=== PATIENT | male | born 1955 | race Caucasian/White ===

== ENCOUNTER 2021-02-08 05:36 | Outpatient (CLI) | payer MEDICARE ==
[~2021-02-08] VITALS: Ht 175.3 cm; Wt 80.9 kg
[2021-02-12] MEDS ORDERED: ALPR0.25 PO (09:36)
[2021-02-12] MEDS ORDERED: SERT-414 PO (09:36)
== END 2021-02-12 16:52 | disposition home or self-care (01) ==
LOC: PREOP 05:36
PROVIDERS: ATTEND Surgery
DX: Z01.818 Encounter for other preprocedural examination (principal)

== ENCOUNTER 2021-02-15 10:01 | Day surgery (SDC) | payer MEDICARE, OTHER ==
[~2021-02-15] VITALS: Ht 175.3 cm; Wt 80.9 kg
[2021-02-15] VITALS (11 sets, daily range): BP systolic 130–158; BP diastolic 71–96
[~2021-02-15 10:01] MED LIST: ALPR0.25 PO; LIDOCAINE/EPI 1%-1:100,000 (XYLOCAINE) 20ML ONE; SERT-414 PO
[2021-02-15] MEDS ORDERED: ceFAZolin INJECTION 1,000 MG in WATER (STERILE) FOR INJECTION 10 ML IV ONE (10:15)
--- NOTE | 2021-02-15 10:23 | Progress Note-Pre Operative ---
Pre-Operative Progress Note H&P Reviewed The H&P was reviewed, patient examined and no changes noted. Date Seen by Provider: February 15, 2021 Time Seen by Provider: : Date H&P Reviewed: February 15, 2021 Time H&P Reviewed: : Pre-Operative Diagnosis: LEFT INGUINAL HERNIA DIDI DE LA CRUZ DO February 15, 2021 10:22
[2021-02-15] MEDS ORDERED: proPOfol 200 MG/20 ML (DIPRIVAN) VIAL IV ONE (10:33)
[2021-02-15] MEDS ORDERED: ONDANSETRON 4 MG/2 ML (SDV) Z0FRAN ONE (10:33)
[2021-02-15] MEDS ORDERED: ROCURONIUM 10 MG/ML 5 ML SYRINGE IV ONE (10:33)
[2021-02-15] MEDS ORDERED: LACTATED RINGERS 1,000 ML IV ONE (10:33)
[2021-02-15] MEDS ORDERED: MIDAZOLAM 2 MG/2 ML (VERSED) VIAL ONE (10:33)
[2021-02-15] MEDS ORDERED: LIDOCAINE PF 2% 5 ML (XYLOCAINE) VIAL ONE (10:33)
[2021-02-15] MEDS ORDERED: fentaNYL INJ 100 MCG/2 ML AMP ONE (10:34)
[2021-02-15] MEDS: LACTATED RINGERS 1,000 ML IV PRN ×2 (10:45→11:24)
[2021-02-15] MEDS ORDERED: SEVOFLURANE (ULTANE) 15 ML INHAL SOLN ONE (11:10)
--- NOTE | 2021-02-15 11:45 | Progress Note-Post Operative ---
Post-Operative Progess Note Surgeon (s)/Fence Maker (s) Surgeon DIDI DE LA CRUZ DO Fence Maker: Dr. Mueller to assist in retraction dissection and closure. Pre-Operative Diagnosis LEFT INGUINAL HERNIA Post-Operative Diagnosis indirect left inguinal hernia, cord lipoma Procedure & Operative Findings Date of Procedure 02/15/21 Procedure Performed/Findings PROCEDURE: Open left inguinal hernia repair, excision cord lipoma COMPLICATIONS: None. INDICATIONS: The patient is a 66, male male with a inguinal hernia. He understands risks and benefits of procedure and wished to proceed with procedure. Consent was signed in the chart. DESCRIPTION OF PROCEDURE: The patient was taken to the operating suite, was prepped and draped in sterile fashion. Surgical pause was performed. Local anesthetic was infiltrated in the lower quadrant. Incision was made and cautery used to dissect down to the external oblique, which was then opened down through the external ring. The spermatic cord was then dissected around. A Mary drain was placed around it and there was no direct defect present. Cord lipoma excised. An indirect hernia present which was then dissected off of spermatic cord. The hernia sac was then twisted and suture ligated. Using ProGrip mesh, this was secured at Tim's ligament and then incorporated around the spermatic cord and placed under the external oblique. Hemostasis was achieved. The external oblique was then closed recreating the external ring and then the subcutaneous tissues were then reapproximated using 3-0 Vicryl and skin was then closed using 4-0 Monocryl in a subcuticular fashion. The abdomen was then washed and dried and Skin Affix was placed over the incision. The patient tolerated procedure well without any complications and taken to recovery room in stable condition. Anesthesia Type general Estimated Blood Loss Estimated blood loss (mL): minimal Specimens/Packing Specimens Removed cord lipoma, hernia sac DIDI DE LA CRUZ DO February 15, 2021 11:45
[2021-02-15] MEDS ORDERED: DOCU-143 PO (11:46)
[2021-02-15] MEDS ORDERED: ACHD5005 PO (11:46)
--- NOTE | 2021-02-15 11:47 | Discharge Inst-Simple/Standard ---
Discharge Inst-Standard Discharge Medications New, Converted or Re-Newed RX: RX on Chart Patient Instructions/Follow Up Plan of Care/Instructions/FU: 2-3 weeks Joanne Activity as Tolerated: No Discharge Diet: Regular Diet Other Inst to Patient Follow up Appt: Make appointment for 2 week. Instructions: No lifting greater than 10 pounds. No strenuous activity. May shower in 24 hours, no tub bath or soaking. Use incentive spirometer at home as directed. No Smoking Skin/Wound Care: You have special glue over your incision that will fall off on it's own. Symptoms to Report: Appetite Changes, Extremity Discoloration, Numbness/Tingling, Swelling Increased, Bleeding Excessive, Eyesight Changes, Pain Increased, Urine Color Change, Constipation(Persistent), Fever over 101 degree F, Pain/Pressure in chest, Urinating Difficulty, Cough Up/Vomit Blood, Heart Beat Irreg/Pounding, Pain/Pressure in jaw, Vaginal Bleeding Increase, Cramps in feet or legs, Lightheadedness, Pain/Pressure in shoulder, Diarrhea(Persistent), Memory Changes Suddenly, Questions/Concerns, Weight gain consecutive days, Dizziness/Fainting, Nausea/Vomiting, Shortness of Breath, Weight gain over 2 pounds If questions or concerns contact your physician Or seek help at emergency department. DIDI DE LA CRUZ DO February 15, 2021 11:47
[2021-02-15] MEDS ORDERED: MEPERIDINE (DEMEROL) INJ 50 MG/ML IVP ONE (12:15)
[2021-02-15] MEDS ORDERED: ONDANSETRON 4 MG/2 ML (SDV) Z0FRAN IVP PRN (12:15)
[2021-02-15] MEDS ORDERED: fentaNYL INJ 100 MCG/2 ML AMP IVP ONE (12:15)
[2021-02-15] MEDS ORDERED: morphine INJ 10 MG/ML 1ML (SYR OR VIAL) IVP ONE (12:15)
--- NOTE | 2021-02-15 12:37 | Anesthesia-General Post-Op ---
General Patient Condition Mental Status/LOC: Same as Preop Cardiovascular: Satisfactory Nausea/Vomiting: Absent Respiratory: Satisfactory Pain: Controlled Complications: Absent Post Op Complications Complications None Follow Up Care/Instructions Patient Instructions None needed. Anesthesia/Patient Condition Patient Condition Patient is doing well, no complaints, stable vital signs, no apparent adverse anesthesia problems. No complications reported per nursing. MAILE VICKERS CRNA February 15, 2021 12:37
[2021-02-15] MEDS ORDERED: HYDROcodone/APAP 5 MG/325 MG (LORTAB) TAB ONE (13:36)
[2021-02-15] MEDS ORDERED: HYDROcodone/APAP 5 MG/325 MG (LORTAB) TAB PO ONE (13:45)
== END 2021-02-15 14:55 | disposition home or self-care (01) ==
LOC: SDC 10:01
PROVIDERS: ATTEND Surgery
DX: K40.90 Unilateral inguinal hernia, without obstruction or gangrene, not specified as recurrent (principal); D17.6 Benign lipomatous neoplasm of spermatic cord; F41.9 Anxiety disorder, unspecified; F32.9 Major depressive disorder, single episode, unspecified; Z79.899 Other long term (current) drug therapy; Z87.891 Personal history of nicotine dependence; Z82.49 Family history of ischemic heart disease and other diseases of the circulatory system; Z83.3 Family history of diabetes mellitus
CPT/HCPCS: 49505; 87081; C1781

== ENCOUNTER 2021-07-24 05:38 | Outpatient (CLI) | payer MEDICARE, OTHER ==
[~2021-07-24] VITALS: Ht 175.3 cm; Wt 80.9 kg
[~2021-07-24 05:38] MED LIST changes: +ACHD5005 PO; +DOCU-143 PO; -LIDOCAINE/EPI 1%-1:100,000 (XYLOCAINE) 20ML ONE
== END 2021-07-25 11:50 | disposition home or self-care (01) ==
LOC: PREOP 05:38
PROVIDERS: ATTEND Surgery
DX: Z01.818 Encounter for other preprocedural examination (principal)

== ENCOUNTER 2021-07-31 09:45 | Day surgery (SDC) | payer MEDICARE, OTHER ==
[2021-07-31] VITALS (7 sets, daily range): BP systolic 92–130; BP diastolic 51–83
[~2021-07-31] VITALS: Ht 175.3 cm; Wt 78.9 kg
[2021-07-31] MEDS ORDERED: LACTATED RINGERS 1,000 ML IV ONE (10:00)
[2021-07-31] MEDS ORDERED: LACTATED RINGERS 1,000 ML IV STA (10:11)
--- NOTE | 2021-07-31 10:25 | Progress Note-Pre Operative ---
Pre-Operative Progress Note H&P Reviewed The H&P was reviewed, patient examined and no changes noted. Date Seen by Provider: Jul 31, 2021 Time Seen by Provider: 10:24 Date H&P Reviewed: Jul 31, 2021 Time H&P Reviewed: 10:24 Pre-Operative Diagnosis: screening colonoscopy DIDI DE LA CRUZ DO Jul 31, 2021 10:25
[2021-07-31] MEDS ORDERED: PROPOFOL INJECTION 50 ML IV ONE (11:46)
[2021-07-31] MEDS ORDERED: MIDAZOLAM 2 MG/2 ML (VERSED) VIAL ONE (11:46)
--- NOTE | 2021-07-31 12:16 | Progress Note-Post Operative ---
Post-Operative Progess Note Surgeon (s)/Book Sewing Machine Operator (s) Surgeon DIDI DE LA CRUZ DO Book Sewing Machine Operator: na Pre-Operative Diagnosis screening colonoscopy Post-Operative Diagnosis normal colon Procedure & Operative Findings Date of Procedure 07/31/21 Procedure Performed/Findings colonoscopy Anesthesia Type Per TRANSIT OPERATIONS SUPERVISOR Estimated Blood Loss Estimated blood loss (mL): none Specimens/Packing Specimens Removed none DIDI DE LA CRUZ DO Jul 31, 2021 12:16
--- NOTE | 2021-07-31 12:18 | Discharge Inst-Simple/Standard ---
Discharge Inst-Standard Patient Instructions/Follow Up Plan of Care/Instructions/FU: repeat colonoscopy in 10 years unless family history of colon cancer which would be 5 years, any issues before that be seen at that time. Activity as Tolerated: Yes Discharge Diet: Regular Diet DIDI DE LA CRUZ DO Jul 31, 2021 12:18
--- NOTE | 2021-07-31 14:30 | Anesthesia-General Post-Op ---
MAC Patient Condition Mental Status/LOC: Same as Preop Cardiovascular: Satisfactory Nausea/Vomiting: Absent Respiratory: Satisfactory Pain: Controlled Complications: Absent Post Op Complications Complications None Follow Up Care/Instructions Patient Instructions None needed. Anesthesiology Discharge Order Discharge Order Patient was doing well after the procedure, no complaints, stable vital signs, no apparent adverse anesthesia problems. ASHLEY MENDEZ DO Jul 31, 2021 14:30
--- NOTE | 2021-07-31 18:34 | OPERATIVE REPORT ---
DATE OF SERVICE: 07/31/2021 PREOPERATIVE DIAGNOSIS: Screening colonoscopy. POSTOPERATIVE DIAGNOSIS: Normal colon. PROCEDURE: Colonoscopy. SURGEON: Didi Rubio DO ANESTHESIA: Per CLAIMS ATTORNEY. ESTIMATED BLOOD LOSS: None. COMPLICATIONS: None. INDICATIONS: The patient is a 66-year-old male needing screening colonoscopy. He understands risks and benefits of procedure and wishes to proceed. Consent was signed in the chart. DESCRIPTION OF PROCEDURE: The patient was taken to the endoscopy suite, placed in left lateral recumbent position. Timeout was performed. Digital rectal exam was performed. No palpable polyps, masses or ulcerations. Scope was inserted in the rectum, advanced all the way to cecum with minimal difficulty. Prep was adequate. Scope was then slowly retracted back. No polyps, masses or ulcerations within the cecum, ascending, transverse, descending and sigmoid colon. Once in the rectum, scope was retroflexed noting no other pathology. Scope was returned to its normal position, slowly withdrawn until completely removed. The patient tolerated procedure well without any complications, taken to recovery room in stable condition. RECOMMENDATIONS: The patient will need repeat colonoscopy in 10 years unless family history of colon cancer, which would then be 5 years. Any issues before that be seen at that time. Job ID: [id number] DocumentID: [id number] Dictated Date: 07/31/2021 12:20:09 Access Database Developer Date: 07/31/2021 18:33:48 Dictated By: DIDI RUBIO DO
== END 2021-07-31 13:19 | disposition home or self-care (01) ==
LOC: ENDO 09:45
PROVIDERS: ATTEND Surgery
DX: Z12.11 Encounter for screening for malignant neoplasm of colon (principal); S60.450A Superficial foreign body of right index finger, initial encounter; F41.9 Anxiety disorder, unspecified; Z87.891 Personal history of nicotine dependence; Z79.899 Other long term (current) drug therapy; Z83.3 Family history of diabetes mellitus; Z82.49 Family history of ischemic heart disease and other diseases of the circulatory system

== ENCOUNTER 2022-07-12 09:22 | Emergency (ER) | payer MEDICARE, OTHER ==
[~2022-07-12] VITALS: Ht 188 cm; Wt 99.8 kg
[2022-07-12] MEDS ORDERED: NS 1000 ML IV BAG IV ONE (09:24)
[2022-07-12] MEDS ORDERED: SODIUM BICARB 8.4% 50 MEQ/50 ML (ABBOTT) SYR INJ ONE (09:24)
[2022-07-12] MEDS ORDERED: EPINEPHrine 0.1 MG/ML 10 ML (HOSPIRA) SYR IJ ONE (09:24)
[2022-07-12 09:25] VITALS: BP 167/105
[2022-07-12] MEDS: NALOXONE 2 MG/2 ML (NARCAN) SYR ONE (09:38)
--- NOTE | 2022-07-12 09:56 | ED CPR ---
HPI-CPR General Chief Complaint: Code Blue Stated Complaint: CODE BLUE Source of Information: EMS Exam Limitations: Physical Impairments History of Present Illness Date Seen by Provider: Jul 12, 2022 Time Seen by Provider: 09:50 Initial Comments Patient is a 67-year-old male brought to the emergency department by EMS found unresponsive in his vehicle. Patient had immediate ACLS protocol initiated with either a fine V. fib or asystole present on the monitor. Medics chose to treat as V. fib, patient was defibrillated x4 prior to arrival. He had an I gel in place for his airway. Medic noticed blood in the airway just as they were pulling into the hospital. No rhythm changes after defibrillation. Patient was found at 0 900. No obvious trauma. Blood sugar was in the 170s. ACLS protocol continued in the emergency department with 2 additional defibrillations at 200 J. An amp of bicarb was given as well as multiple subsequent doses of IV epinephrine. 2 of Narcan was also given and spite of unresponsive dilated pupils. Patient was warm on arrival with good color. I gel was exchanged for 8 oh ET tube using the glide scope with visualization of the cords, bilateral breath sounds initially right greater than left secured at 24 at the lip. He had copious amounts of bloody sputum suctioned from the airway at the time of end of resuscitative efforts approximately 350 cc had been suctioned from the airway. After no response and rhythm changed to what appeared to be an organized PEA rhythm with no pulse, no spontaneous respirations no return of circulation time of was called at 0 946. Initial Complaints: Found Unresponsive Witnessed Arrest: No Bystander CPR: No Paramedics Initial Findings: No Pulse, No Respirations, Unresponsive, V-FIB Paramedics' Initial Vital Sign: none Pre Hospital Treatment: CPR/Thumper, Defibrillation (x4), Oxygen, Amiodorone (mg) (300mg), Epinephrine (mg) (multiplr) Allergies and Home Medications Allergies Coded Allergies: No Known Drug Allergies (Unverified , 02/12/21) Patient Home Medication List Home Medication List Reviewed: Yes Alprazolam (Xanax) 0.25 Mg Tablet, 0.25 MG PO TID, (Reported) Entered as Reported by: OLAMIDE MONROE on 02/12/21 0936 Docusate Sodium (Colace) 100 Mg Capsule, 100 MG PO BID Prescribed by: DIDI DE LA CRUZ on 02/15/21 1146 Hydrocodone/Acetaminophen (Hydrocodone-Acetamin 5-325 mg) 1 Each Tablet, 1 EACH PO Q4H PRN for PAIN-MODERATE (5-7) Prescribed by: DIDI DE LA CRUZ on 02/15/21 1146 Sertraline HCl (Sertraline HCl) 100 Mg Tablet, 100 MG PO DAILY, (Reported) Entered as Reported by: OLAMIDE MONROE on 02/12/21 0936 Review of Systems Review of Systems Constitutional: see HPI Other Comments unable to obtain due to CPR Past [id number] Hx Immunizations Up To Date First/Initial COVID19 Vaccinat: 01/01/21 Second COVID19 Vaccination Efraín: 02/01/21 Seasonal Allergies Seasonal Allergies: Yes Past Medical History Surgeries: No (HERNIA SURGERY FEBRUARY 2021) Respiratory: No Currently Using CPAP: No Currently Using BIPAP: No Cardiac: No Neurological: No Sexually Transmitted Disease: No HIV/AIDS: No Genitourinary: No Gastrointestinal: No Musculoskeletal: Yes (HERNIATED DISC) Endocrine: No HEENT: No Cancer: No Psychosocial: Yes Anxiety, Depression Integumentary: Yes Eczema Blood Disorders: No Physical Exam Vital Signs Vital Signs - First Documented 07/12/22 09:25 Pulse 131 B/P (MAP) 167/105 (125) Pulse Ox 68 O2 Delivery Ambu Bag Capillary Refill : Height, Weight, BMI Height: '" Weight: lbs. oz. kg; 25.67 BMI Method: General Appearance: Other (unresponsive, no VS present) HEENT: Other (bilateral pupils 4-5mm unresponsive; copious airway bleeding - pooling in the posterior pharynx) Neck: Normal Inspection Respiratory: Other (coarse crackly breath sounds) Cardiovascular: Other (no pulses palpable) Gastrointestinal: Other (slightly distended) Extremity: Other (no trauma appreciated/wounds/deformities) Neurologic/Psychiatric: Other (unresponsive) Skin: Normal Color, Warm/Dry, Other (slight cyanosis of the neck and face) Procedures/Interventions Defibrillation: x2 CPR discontinued at 0946 Progress/Results/Core Measures Results/Orders Lab Results Laboratory Tests Test 07/12/22 09:34 Range/Units My Orders Orders - JAJA FERRARI MD Naloxone Injection (Narcan Injection) (07/12/22 09:37) Drug Screen Stat (Urine) (07/12/22 11:36) Vital Signs/I&O 07/12/22 09:25 Pulse 131 B/P (MAP) 167/105 (125) Pulse Ox 68 O2 Delivery Ambu Bag Progress Progress Note : Time: 11:52 Progress Note Discussed with Dr Penn (salon sales consultant) he asked for a urine drug screen to be sent and to hold the body until the reverse engineer arrived to investigate. Family wishes body to be released to [facility] when investigation completed. Departure Impression Primary Impression: Cardiopulmonary arrest Additional Impression: Sudden cardiac Disposition: 20 Condition: Departure-Patient Inst. Referrals: GEOVANI HAMM DO (PCP) Primary Care Physician JAJA FERRARI MD Jul 12, 2022 09:56
[2022-07-12 12:04] LABS: AMPHETAMINE SCREEN, URINE NEGATIVE (NEGATIVE); BARBITURATE SCREEN URINE NEGATIVE (NEGATIVE); BENZODIAZEPINES SCREEN URINE POSITIVE (NEGATIVE); CANNABINOID SCREEN, URINE NEGATIVE (NEGATIVE); COCAINE SCREEN URINE NEGATIVE (NEGATIVE); METHADONE STAT NEGATIVE (NEGATIVE); OPIATE SCREEN URINE NEGATIVE (NEGATIVE); OXYCODONE STAT NEGATIVE (NEGATIVE); PROPOXYPHENE STAT NEGATIVE (NEGATIVE); TRICYCLIC ANTIDEPRESSANTS SCRE NEGATIVE (NEGATIVE)
== END 2022-07-12 12:45 | disposition expired ==
LOC: EDUNIT# 09:22 → ER 09:23
DX: I46.9 Cardiac arrest, cause unspecified (principal)
CPT/HCPCS: 31500; 51702; 80306; 99283